=== PATIENT | female | born 1950 | race Caucasian/White ===

== ENCOUNTER 2020-04-20 19:18 | Outpatient (REF) | payer MEDICARE, SELFPAY ==
[2020-04-21 17:32] LABS: Anion Gap 7.8 mmol/L (3-11); BUN 14 mg/dL (7-18); CO2 26.2 mmol/L (21.0-32.0); CREATININE 0.98 mg/dL (0.55-1.02); Calcium 8.9 mg/dL (8.5-10.1); Calculated LDL 160 mg/dL (<100); Chloride 107 mmol/L (98-107); Cholesterol 260 mg/dL (<200); Estimated GFR 56.11 (mL/min/1.73m2); Glucose 105 mg/dL (74-106); HDL Cholesterol 74 mg/dL (40-60); Potassium 4.4 mmol/L (3.5-5.1); Sodium 141 mmol/L (136-145); Triglyceride 133 mg/dL (<150)
== END 2020-04-20 19:38 ==
LOC: NCHCN 19:18
PROVIDERS: PCP Family Medicine; Visit Provider Family Medicine
DX: I10 Essential (primary) hypertension (principal); E66.3 Overweight
CPT/HCPCS: 80048; 80061

== ENCOUNTER 2020-05-04 14:32 | Outpatient (REF) | payer MEDICARE, SELFPAY ==
[2020-05-04 21:35] LABS: Anion Gap 8.7 mmol/L (3-11); BUN 16 mg/dL (7-18); CO2 26.3 mmol/L (21.0-32.0); CREATININE 1.02 mg/dL (0.55-1.02); Calcium 9.2 mg/dL (8.5-10.1); Chloride 104 mmol/L (98-107); Estimated GFR 53.58 (mL/min/1.73m2); Glucose 131 mg/dL (74-106); Sodium 139 mmol/L (136-145)
== END 2020-05-04 14:52 ==
LOC: NCHCN 14:32
PROVIDERS: PCP Family Medicine; Visit Provider Family Medicine
DX: I10 Essential (primary) hypertension (principal)
CPT/HCPCS: 80048

== ENCOUNTER 2020-08-01 19:57 | Outpatient (REF) | payer MEDICARE, SELFPAY ==
[2020-08-01 21:28] LABS: Anion Gap 10.7 mmol/L (3-11); BUN 16 mg/dL (7-18); CO2 26.3 mmol/L (21.0-32.0); CREATININE 1.13 mg/dL (0.55-1.02); Calcium 9.7 mg/dL (8.5-10.1); Chloride 102 mmol/L (98-107); Glucose 98 mg/dL (74-106); Sodium 139 mmol/L (136-145)
== END 2020-08-01 20:17 ==
LOC: NCHCN 19:57
PROVIDERS: PCP Family Medicine; Visit Provider Nurse Practitioner Family
DX: I10 Essential (primary) hypertension (principal)
CPT/HCPCS: 80048

== ENCOUNTER 2020-10-24 14:53 | Outpatient (REF) | payer OTHER, SELFPAY ==
[2020-10-24 15:46] LABS: BUN 14 mg/dL (7-18); CREATININE 0.9 mg/dL (0.55-1.02); Calcium 9.9 mg/dL (8.5-10.1); Chloride 101 mmol/L (98-107); Glucose 105 mg/dL (74-106); Sodium 137 mmol/L (136-145)
== END 2020-10-24 14:54 | disposition home or self-care (01) ==
LOC: NCHCN 14:53
PROVIDERS: PCP Family Medicine; Visit Provider Family Medicine
DX: I10 Essential (primary) hypertension (principal); E66.3 Overweight
CPT/HCPCS: 80048

== ENCOUNTER 2021-11-06 16:04 | Outpatient (REF) | payer MEDICARE, SELFPAY ==
[2021-11-06 21:46] LABS: Anion Gap 9.6 mmol/L (3-11); BUN 13 mg/dL (7-18); CO2 25.4 mmol/L (21.0-32.0); Calcium 9.5 mg/dL (8.5-10.1); Calculated LDL 141 mg/dL (<100); Chloride 102 mmol/L (98-107); Cholesterol 246 mg/dL (<200); Estimated GFR 54.66 (mL/min/1.73m2); Glucose 117 mg/dL (74-106); HDL Cholesterol 65 mg/dL (40-60); Sodium 137 mmol/L (136-145); Triglyceride 203 mg/dL (<150)
== END 2021-11-06 16:05 | disposition home or self-care (01) ==
LOC: NCHCN 16:04
PROVIDERS: PCP Family Medicine; Visit Provider Family Medicine
DX: I10 Essential (primary) hypertension (principal)
CPT/HCPCS: 80048; 80061

== ENCOUNTER 2023-09-10 15:36 | Outpatient (REF) | payer MEDICARE, SELFPAY ==
[2023-09-10 21:51] LABS: HCT 44.4 % (36.0-46.0); HGB 14.7 g/dL (11.2-15.7); MCH 30.7 pg (27.0-33.0); MCHC 33.1 % (32.0-36.0); MCV 93 fL (80-95); MPV 11.2 fL (8.0-11.0); Platelet Count 235 10^3/uL (130-400); RBC 4.79 10^6/uL (3.93-5.22); RDW-SD 41.7 fL; WBC 6.32 10^3/uL (4.4-10.8)
[2023-09-10 22:02] LABS: Anion Gap 7.2 mmol/L (3-11); BUN 13 mg/dL (7-18); CO2 28.8 mmol/L (21.0-32.0); Calcium 10.7 mg/dL (8.5-10.1); Chloride 102 mmol/L (98-107); Estimated GFR 59.49 (mL/min/1.73m2); Glucose 106 mg/dL (74-106); Potassium 4.2 mmol/L (3.5-5.1); Sodium 138 mmol/L (136-145)
[2023-09-11 14:00] LABS: Vitamin D 25 Total 54.7 ng/mL (30-100)
== END 2023-09-10 15:37 | disposition home or self-care (01) ==
LOC: NCHCN 15:36
PROVIDERS: PCP Family Medicine; Visit Provider Family Medicine
DX: D64.9 Anemia, unspecified (principal); I10 Essential (primary) hypertension; E83.52 Hypercalcemia
CPT/HCPCS: 80048; 82306; 85027

== ENCOUNTER 2024-03-19 15:53 | Outpatient (REF) | payer MEDICARE, SELFPAY ==
[2024-03-19 21:25] LABS: HCT 42.7 % (36.0-46.0); HGB 14.7 g/dL (11.2-15.7); MCH 31.2 pg (27.0-33.0); MCHC 34.4 % (32.0-36.0); MCV 91 fL (80-95); Platelet Count 210 10^3/uL (130-400); RBC 4.71 10^6/uL (3.93-5.22); WBC 6.73 10^3/uL (4.4-10.8)
[2024-03-19 21:58] LABS: ALT 31 U/L (14-59); AST 21 U/L (15-37); Albumin 4.1 g/dL (3.4-5.0); Alkaline Phosphatase 78 U/L (46-116); Anion Gap 7.1 mmol/L (3-11); BUN 17 mg/dL (7-18); Bilirubin, Total 0.29 mg/dL (0.2-1.0); CO2 25.9 mmol/L (21.0-32.0); Calcium 9.8 mg/dL (8.5-10.1); Calculated LDL 169 mg/dL (<100); Chloride 103 mmol/L (98-107); Cholesterol 273 mg/dL (<200); Estimated GFR 59.12 (mL/min/1.73m2); Glucose 120 mg/dL (74-106); HDL Cholesterol 72 mg/dL (40-60); Potassium 4.1 mmol/L (3.5-5.1); Sodium 136 mmol/L (136-145); TSH (W/Ref FT4) 0.12 uIU/mL (0.36-3.74); Total Protein 7.3 g/dL (6.4-8.2); Triglyceride 163 mg/dL (<150); Vitamin B12 528 pg/mL (193-986)
[2024-03-19 22:15] LABS: FREE T4 0.96 ng/dL (0.76-1.46)
== END 2024-03-19 15:54 | disposition home or self-care (01) ==
LOC: NCHCN 15:53
PROVIDERS: PCP Family Medicine; Visit Provider Family Medicine
DX: E78.5 Hyperlipidemia, unspecified (principal); R20.2 Paresthesia of skin; Z86.2 Personal history of diseases of the blood and blood-forming organs and certain disorders involving the immune mechanism
CPT/HCPCS: 80053; 80061; 85027; 82607; 84439; 84443

== ENCOUNTER 2024-05-24 16:02 | Outpatient (REF) | payer MEDICARE, SELFPAY ==
[2024-05-24 18:31] LABS: ALT 29 U/L (14-59); AST 23 U/L (15-37); Albumin 4.1 g/dL (3.4-5.0); Alkaline Phosphatase 80 U/L (46-116); Anion Gap 9.8 mmol/L (3-11); BUN 16 mg/dL (7-18); Bilirubin, Total 0.48 mg/dL (0.2-1.0); CO2 26.2 mmol/L (21.0-32.0); Calcium 9.9 mg/dL (8.5-10.1); Calculated LDL 74 mg/dL (<100); Chloride 103 mmol/L (98-107); Cholesterol 185 mg/dL (<200); Estimated GFR 59.12 (mL/min/1.73m2); Glucose 108 mg/dL (74-106); HDL Cholesterol 77 mg/dL (40-60); Potassium 4.8 mmol/L (3.5-5.1); Sodium 139 mmol/L (136-145); TSH (W/Ref FT4) 0.23 uIU/mL (0.36-3.74); Total Protein 7.3 g/dL (6.4-8.2); Triglyceride 172 mg/dL (<150)
[2024-05-24 18:47] LABS: FREE T4 1.15 ng/dL (0.76-1.46)
== END 2024-05-24 16:03 | disposition home or self-care (01) ==
LOC: NCHCN 16:02
PROVIDERS: PCP Family Medicine; Visit Provider Family Medicine
DX: E78.5 Hyperlipidemia, unspecified (principal)
CPT/HCPCS: 80053; 80061; 84439; 84443

== ENCOUNTER 2025-05-31 14:50 | Outpatient (REF) | payer MEDICARE, SELFPAY ==
[2025-05-31 21:36] LABS: ALT 35 U/L (14-59); AST 24 U/L (15-37); Albumin 4.1 g/dL (3.4-5.0); Alkaline Phosphatase 72 U/L (46-116); Anion Gap 8.8 mmol/L (3-11); BUN 19 mg/dL (7-18); Bilirubin, Total 0.4 mg/dL (0.2-1.0); CO2 27.2 mmol/L (21.0-32.0); Calcium 9.5 mg/dL (8.5-10.1); Calculated LDL 151 mg/dL (<100); Chloride 99 mmol/L (98-107); Cholesterol 251 mg/dL (<200); Estimated GFR 58.75 (mL/min/1.73m2); Glucose 100 mg/dL (74-106); HDL Cholesterol 76 mg/dL (>or=50); Potassium 4.1 mmol/L (3.5-5.1); Sodium 135 mmol/L (136-145); Total Protein 7.3 g/dL (6.4-8.2); Triglyceride 120 mg/dL (<150)
== END 2025-05-31 14:51 | disposition home or self-care (01) ==
LOC: NCHCN 14:50
PROVIDERS: PCP Family Medicine; Visit Provider Family Medicine
DX: E78.5 Hyperlipidemia, unspecified (principal)
CPT/HCPCS: 80053; 80061